=== PATIENT | male | born 1975 | race Two or more races ===

== ENCOUNTER 2018-05-20 19:13 | Emergency (ER) | payer MEDICAID ==
[~2018-05-20] VITALS: Ht 172.7 cm; Wt 83.9 kg
[~2018-05-20 19:13] MED LIST: CHLO25 PO; DOXE10 PO; Desyrel50 MG PO; Fluoxetine HCl20 M1 PO; HYDPAM25 PO; LEVO750 PO; LORA1 PO; OXYACE7.5T PO; PROP10 PO; Prilosec20 MG PO; QUET100 PO; Roxicodone5 MG PO; TRAZ50 PO; VENL75ER PO
== END 2018-05-20 20:15 | disposition home or self-care (01) ==
LOC: ER 19:13
DX: S81.811A Laceration without foreign body, right lower leg, initial encounter (principal); W26.8XXA Contact with other sharp object(s), not elsewhere classified, initial encounter; Z88.0 Allergy status to penicillin; Z87.891 Personal history of nicotine dependence

== ENCOUNTER 2019-02-03 22:41 | Emergency (ER) | payer MEDICAID ==
[~2019-02-03] VITALS: Ht 170.2 cm; Wt 72.6 kg
[~2019-02-03 22:41] MED LIST changes: +Prilosec Otc20 MG PO; +TRAM50 PO
[2019-02-04 00:05] LABS: BASOPHILS ABSOLUTE AUTO 0.05 K/mm3 (0.00-0.23); BASOPHILS PERCENT AUTO 1 % (0-2); EOSINOPHILS ABSOLUTE AUTO 0.05 K/mm3 (0.00-0.68); EOSINOPHILS PERCENT AUTO 1 % (0-6); Hematocrit 36.2 % (37.0-53.0); Hemoglobin 12.8 g/dL (13.5-17.5); IMMATURE GRAN ABSOLUTE AUTO 0.01 K/mm3 (0.00-0.10); IMMATURE GRAN PERCENT AUTO 0 % (0-1); LYMPHOCYTES ABSOLUTE AUTO 3.13 K/mm3 (0.84-5.20); LYMPHOCYTES PERCENT AUTO 46 % (21-46); MONOCYTES ABSOLUTE AUTO 0.52 K/mm3 (0.16-1.47); MONOCYTES PERCENT AUTO 8 % (4-13); Mean Corpuscular HGB 36.3 pg (26.0-34.0); Mean Corpuscular HGB Conc 35.4 g/dL (31.5-36.5); Mean Corpuscular Volume 103 fL (80-100); NEUTROPHILS ABSOLUTE AUTO 3.12 K/mm3 (1.96-9.15); NEUTROPHILS PERCENT AUTO 45 % (41-73); RDW Coefficient Variation 12.3 % (11.7-14.2); RDW Standard Deviation 46.5 fL (35.1-46.3); Red Blood Cell Count 3.53 M/mm3 (4.30-5.90); White Blood Cell Count 6.88 K/mm3 (4.00-11.30)
[2019-02-04 00:06] LABS: Platelet Count 199 K/mm3 (150-400)
[2019-02-04 00:22] LABS: Alanine Aminotransfer (ALT/SGP 59 U/L (12-78); Albumin, Blood 4.1 g/dL (3.4-5.0); Albumin/Globulin Ratio 1.2 (0.8-1.8); Alk Phos 133 U/L (50-136); Anion Gap 12 mmol/L (6-16); Aspartate Aminotrans (AST/SGOT 137 U/L (12-37); Bilirubin, Total 1.6 mg/dL (0.1-1.0); Blood Urea Nitrogen 11 mg/dL (8-24); Bun/Creatinine Ratio 16.3 (12.0-20.0); CO2, Blood 24 mmol/L (21-32); Calcium, Blood 8.5 mg/dL (8.5-10.1); Chloride, Blood 102 mmol/L (98-108); Creatinine, Blood 0.68 mg/dL (0.60-1.20); Globulin, Blood 3.5 g/dL (2.2-4.0); Glomerular Filtration Rate >60 (60-); Glucose, Blood 117 mg/dL (70-99); Potassium, Blood 3.4 mmol/L (3.5-5.5); Sodium, Blood 138 mmol/L (136-145); Total Protein, Blood 7.6 g/dL (6.4-8.2)
[2019-02-04 00:37] LABS: Ethanol (Alcohol), Blood, Med 383 mg/dL
== END 2019-02-04 01:17 | disposition home or self-care (01) ==
LOC: ER 22:41
PROVIDERS: Emergency Medicine
DX: R10.32 Left lower quadrant pain (principal); F10.129 Alcohol abuse with intoxication, unspecified; Y90.8 Blood alcohol level of 240 mg/100 ml or more; Z88.0 Allergy status to penicillin
CPT/HCPCS: 36415; 71046; 74176; 80053; 83690; 85025; 93005; 93010; 99284-25; G0480

== ENCOUNTER 2019-04-05 15:39 | Emergency (ER) | payer MEDICAID ==
[~2019-04-05] VITALS: Ht 172.7 cm; Wt 79.4 kg
[2019-04-05] MEDS ORDERED: Monodox100 MG PO (16:12)
[2019-04-05] MEDS ORDERED: TRAM50 PO (16:31)
[2019-04-05] MEDS ORDERED: CYCL10 PO (16:31)
== END 2019-04-05 16:34 | disposition home or self-care (01) ==
LOC: ER 15:39
DX: L03.113 Cellulitis of right upper limb (principal); M62.830 Muscle spasm of back
CPT/HCPCS: 72100; 99283-25

== ENCOUNTER 2019-04-15 10:20 | Emergency (ER) | payer OTHER ==
[~2019-04-15] VITALS: Ht 170.2 cm; Wt 74.8 kg
[~2019-04-15 10:20] MED LIST changes: +CYCL10 PO; +Monodox100 MG PO
[2019-04-15] MEDS ORDERED: CHLO25 PO (20:29)
[2019-04-16] MEDS ORDERED: Bactrim Ds Tab1 EACH PO ×2 (19:30→19:37)
== END 2019-04-15 11:11 | disposition home or self-care (01) ==
LOC: ER 10:20
DX: L02.413 Cutaneous abscess of right upper limb (principal); Z88.0 Allergy status to penicillin; Z79.899 Other long term (current) drug therapy; J45.909 Unspecified asthma, uncomplicated; Z87.891 Personal history of nicotine dependence
CPT/HCPCS: 10060; 99283-25

== ENCOUNTER 2019-04-15 19:01 | Emergency (ER) | payer OTHER ==
[~2019-04-15] VITALS: Ht 170.2 cm; Wt 74.8 kg
[2019-04-15 19:50] LABS: BASOPHILS ABSOLUTE AUTO 0.03 K/mm3 (0.00-0.23); BASOPHILS PERCENT AUTO 1 % (0-2); EOSINOPHILS ABSOLUTE AUTO 0.03 K/mm3 (0.00-0.68); EOSINOPHILS PERCENT AUTO 1 % (0-6); Hematocrit 35.4 % (37.0-53.0); Hemoglobin 12.3 g/dL (13.5-17.5); IMMATURE GRAN ABSOLUTE AUTO 0.01 K/mm3 (0.00-0.10); IMMATURE GRAN PERCENT AUTO 0 % (0-1); LYMPHOCYTES ABSOLUTE AUTO 1.62 K/mm3 (0.84-5.20); LYMPHOCYTES PERCENT AUTO 27 % (21-46); MONOCYTES ABSOLUTE AUTO 0.44 K/mm3 (0.16-1.47); MONOCYTES PERCENT AUTO 7 % (4-13); Mean Corpuscular HGB 35.4 pg (26.0-34.0); Mean Corpuscular HGB Conc 34.7 g/dL (31.5-36.5); Mean Corpuscular Volume 102 fL (80-100); Mean Platelet Volume 10.7 fL (9.1-12.4); NEUTROPHILS ABSOLUTE AUTO 3.79 K/mm3 (1.96-9.15); NEUTROPHILS PERCENT AUTO 64 % (41-73); Platelet Count 166 K/mm3 (150-400); RDW Coefficient Variation 12.3 % (11.7-14.2); RDW Standard Deviation 45.8 fL (35.1-46.3); Red Blood Cell Count 3.47 M/mm3 (4.30-5.90); White Blood Cell Count 5.92 K/mm3 (4.00-11.30)
[2019-04-15 20:10] LABS: Alanine Aminotransfer (ALT/SGP 42 U/L (12-78); Albumin, Blood 4.2 g/dL (3.4-5.0); Albumin/Globulin Ratio 1.2 (0.8-1.8); Alk Phos 134 U/L (50-136); Anion Gap 10 mmol/L (6-16); Aspartate Aminotrans (AST/SGOT 65 U/L (12-37); Bilirubin, Total 2.3 mg/dL (0.1-1.0); Blood Urea Nitrogen 5 mg/dL (8-24); Bun/Creatinine Ratio 6.4 (12.0-20.0); CO2, Blood 27 mmol/L (21-32); Chloride, Blood 98 mmol/L (98-108); Creatinine, Blood 0.79 mg/dL (0.60-1.20); Globulin, Blood 3.6 g/dL (2.2-4.0); Glomerular Filtration Rate >60 (60-); Glucose, Blood 101 mg/dL (70-99); Potassium, Blood 3.4 mmol/L (3.5-5.5); Sodium, Blood 135 mmol/L (136-145); Total Protein, Blood 7.8 g/dL (6.4-8.2)
[2019-04-15] MEDS ORDERED: CHLO25 PO (20:29)
[2019-04-15 20:30] LABS: Source, Urine Clean Catch
[2019-04-15 20:36] LABS: Bilirubin, Urine Neg (Neg); Blood, Urine Neg (Neg); Glucose Qualitative, Urine Neg (Neg); Ketones, Urine Neg (Neg); Leukocyte Esterase, Urine Neg (Neg); Nitrite, Urine Neg (Neg); Protein, Urine Neg (Neg); Specific Gravity, Urine 1.005 (1.003-1.022); Urobilinogen, Urine NORM (Normal)
[2019-04-15 20:42] LABS: Appearance, Urine Clear (Clear); Color, Urine Pale Yellow (P-Yellow)
[2019-04-15 20:49] LABS: U Amphetamine Screen Not Detected; U Barbituate Screen Not Detected; U Benzodiazapine Screen DETECTED; U Buprenorphine Screen Not Detected; U Cannabinoids Screen Not Detected; U Cocaine Screen Not Detected; U Methadone Screen Not Detected; U Methamphetamine Screen Not Detected; U Opiates Screen Not Detected; U Oxycodone Screen Not Detected; U Phencyclidine Screen Not Detected; U Propoxyphene Screen Not Detected
[2019-04-16] MEDS ORDERED: Bactrim Ds Tab1 EACH PO ×2 (19:30→19:37)
== END 2019-04-15 20:36 | disposition home or self-care (01) ==
LOC: ER 19:01
PROVIDERS: Physician Assistant
DX: F10.231 Alcohol dependence with withdrawal delirium (principal); Z48.817 Encounter for surgical aftercare following surgery on the skin and subcutaneous tissue; Z88.0 Allergy status to penicillin; Z79.899 Other long term (current) drug therapy; Z87.891 Personal history of nicotine dependence
CPT/HCPCS: 36415; 80053; 81003; 82140; 85025; 99283

== ENCOUNTER 2019-04-16 16:13 | Emergency (ER) | payer OTHER ==
[~2019-04-16] VITALS: Ht 170.2 cm; Wt 81.7 kg
[2019-04-16 17:47] LABS: BASOPHILS ABSOLUTE AUTO 0.04 K/mm3 (0.00-0.23); BASOPHILS PERCENT AUTO 1 % (0-2); EOSINOPHILS ABSOLUTE AUTO 0.03 K/mm3 (0.00-0.68); EOSINOPHILS PERCENT AUTO 1 % (0-6); Hematocrit 35.3 % (37.0-53.0); Hemoglobin 12.4 g/dL (13.5-17.5); IMMATURE GRAN ABSOLUTE AUTO 0.02 K/mm3 (0.00-0.10); IMMATURE GRAN PERCENT AUTO 0 % (0-1); LYMPHOCYTES PERCENT AUTO 35 % (21-46); MONOCYTES ABSOLUTE AUTO 0.44 K/mm3 (0.16-1.47); MONOCYTES PERCENT AUTO 7 % (4-13); Mean Corpuscular HGB 35.6 pg (26.0-34.0); Mean Corpuscular HGB Conc 35.1 g/dL (31.5-36.5); Mean Corpuscular Volume 101 fL (80-100); NEUTROPHILS ABSOLUTE AUTO 3.53 K/mm3 (1.96-9.15); NEUTROPHILS PERCENT AUTO 57 % (41-73); Platelet Count 196 K/mm3 (150-400); RDW Coefficient Variation 12.3 % (11.7-14.2); RDW Standard Deviation 45.4 fL (35.1-46.3); Red Blood Cell Count 3.48 M/mm3 (4.30-5.90); White Blood Cell Count 6.26 K/mm3 (4.00-11.30)
[2019-04-16 18:06] LABS: Alanine Aminotransfer (ALT/SGP 39 U/L (12-78); Albumin, Blood 4.1 g/dL (3.4-5.0); Albumin/Globulin Ratio 1.1 (0.8-1.8); Alk Phos 124 U/L (50-136); Anion Gap 10 mmol/L (6-16); Aspartate Aminotrans (AST/SGOT 65 U/L (12-37); Bilirubin, Total 1.5 mg/dL (0.1-1.0); Blood Urea Nitrogen 6 mg/dL (8-24); Bun/Creatinine Ratio 8.5 (12.0-20.0); CO2, Blood 25 mmol/L (21-32); Calcium, Blood 9.5 mg/dL (8.5-10.1); Chloride, Blood 102 mmol/L (98-108); Globulin, Blood 3.6 g/dL (2.2-4.0); Glomerular Filtration Rate >60 (60-); Glucose, Blood 118 mg/dL (70-99); Potassium, Blood 3.4 mmol/L (3.5-5.5); Sodium, Blood 137 mmol/L (136-145); Total Protein, Blood 7.7 g/dL (6.4-8.2)
[2019-04-16] MEDS ORDERED: Bactrim Ds Tab1 EACH PO ×2 (19:30→19:37)
== END 2019-04-16 19:59 | disposition home or self-care (01) ==
LOC: ER 16:13
PROVIDERS: Physician Assistant
DX: L03.113 Cellulitis of right upper limb (principal); Z72.89 Other problems related to lifestyle; Z88.0 Allergy status to penicillin; Z79.899 Other long term (current) drug therapy; Z87.891 Personal history of nicotine dependence
CPT/HCPCS: 36415; 80053; 85025; 96374; 99283-25; G0480; J2060

== ENCOUNTER 2019-05-03 16:50 | Emergency (ER) | payer OTHER ==
[~2019-05-03] VITALS: Ht 172.7 cm; Wt 74.8 kg
[~2019-05-03 16:50] MED LIST changes: +Bactrim Ds Tab1 EACH PO
[2019-05-03] MEDS ORDERED: HYDHCL25 PO (17:23)
[2019-05-03] MEDS ORDERED: Prednisone20 MG PO (17:23)
== END 2019-05-03 17:35 | disposition home or self-care (01) ==
LOC: ER 16:50
DX: L23.7 Allergic contact dermatitis due to plants, except food (principal); Z88.0 Allergy status to penicillin; Z88.8 Allergy status to other drugs, medicaments and biological substances; Z87.891 Personal history of nicotine dependence
CPT/HCPCS: 99282; J7512

== ENCOUNTER 2019-05-14 17:27 | Emergency (ER) | payer OTHER ==
[~2019-05-14] VITALS: Ht 170.2 cm; Wt 77.1 kg
[~2019-05-14 17:27] MED LIST changes: +HYDHCL25 PO; +Prednisone20 MG PO
[2019-05-14] MEDS ORDERED: Prednisone10 MG PO (18:31)
== END 2019-05-14 18:49 | disposition home or self-care (01) ==
LOC: ER 17:27
DX: L23.7 Allergic contact dermatitis due to plants, except food (principal); L55.9 Sunburn, unspecified; J45.909 Unspecified asthma, uncomplicated; Z88.0 Allergy status to penicillin; Z87.891 Personal history of nicotine dependence
CPT/HCPCS: 96372; 99283-25; J3301

== ENCOUNTER 2019-10-15 13:52 | Emergency (ER) | payer OTHER ==
[~2019-10-15 13:52] MED LIST changes: +Prednisone10 MG PO
== END 2019-10-15 14:08 | disposition left against medical advice (07) ==
LOC: ER 13:52
DX: Z53.21 Procedure and treatment not carried out due to patient leaving prior to being seen by health care provider (principal)

== ENCOUNTER 2020-01-30 17:22 | Emergency (ER) | payer OTHER ==
[~2020-01-30] VITALS: Ht 167.6 cm; Wt 74.8 kg
[2020-01-30] MEDS ORDERED: Vibramycin100 MG PO (17:35)
== END 2020-01-30 17:48 | disposition home or self-care (01) ==
LOC: ER 17:22
DX: S51.852A Open bite of left forearm, initial encounter (principal); J45.909 Unspecified asthma, uncomplicated; Z88.0 Allergy status to penicillin; Z88.1 Allergy status to other antibiotic agents; Z79.52 Long term (current) use of systemic steroids; W55.01XA Bitten by cat, initial encounter
CPT/HCPCS: 90471; 90714; 99283-25

== ENCOUNTER 2020-04-17 22:20 | Emergency (ER) | payer OTHER ==
[~2020-04-17 22:20] MED LIST changes: +Vibramycin100 MG PO
== END 2020-04-18 00:15 | disposition left against medical advice (07) ==
LOC: ER 22:20
DX: Z53.21 Procedure and treatment not carried out due to patient leaving prior to being seen by health care provider (principal)

== ENCOUNTER 2020-08-25 19:41 | Emergency (ER) | payer OTHER ==
[~2020-08-25] VITALS: Ht 170.2 cm; Wt 81.7 kg
[~2020-08-25 19:41] MED LIST changes: +Norco 5-325 Ta1 EACH PO
[2020-08-25] MEDS ORDERED: CEPH500 PO (23:40)
[2020-08-25] MEDS ORDERED: IBU800 MG PO (23:40)
== END 2020-08-25 23:46 | disposition home or self-care (01) ==
LOC: ER 19:41
DX: S00.03XA Contusion of scalp, initial encounter (principal); Z87.828 Personal history of other (healed) physical injury and trauma; Z87.891 Personal history of nicotine dependence; X58.XXXA Exposure to other specified factors, initial encounter
CPT/HCPCS: 10060; 70450; 87070; 87075; 87077; 87186; 87205; 99284-25; A9270-GY

== ENCOUNTER 2020-10-02 14:48 | Emergency (ER) | payer OTHER ==
[~2020-10-02] VITALS: Ht 170.2 cm; Wt 79.4 kg
[~2020-10-02 14:48] MED LIST changes: +CEPH500 PO; +IBU800 MG PO
[2020-10-02] MEDS ORDERED: CYCL10 PO (16:20)
[2020-10-02] MEDS ORDERED: IBU800 MG PO (16:20)
== END 2020-10-02 16:32 | disposition home or self-care (01) ==
LOC: ER 14:48
DX: S39.012A Strain of muscle, fascia and tendon of lower back, initial encounter (principal); V47.5XXA Car driver injured in collision with fixed or stationary object in traffic accident, initial encounter; Y92.410 Unspecified street and highway as the place of occurrence of the external cause
CPT/HCPCS: 72100; 99284-25; A9270-GY

== ENCOUNTER 2020-12-05 09:38 | Emergency (ER) | payer OTHER | END 2020-12-05 10:44 | disposition left against medical advice (07) | LOC: ER 09:38 | DX: Z53.21 Procedure and treatment not carried out due to patient leaving prior to being seen by health care provider (principal) ==

== ENCOUNTER 2020-12-15 12:36 | Emergency (ER) | payer OTHER ==
[~2020-12-15] VITALS: Ht 170.2 cm; Wt 79.4 kg
[2020-12-15 13:58] LABS: BASOPHILS ABSOLUTE AUTO 0.08 K/mm3 (0.00-0.23); BASOPHILS PERCENT AUTO 2 % (0-2); EOSINOPHILS ABSOLUTE AUTO 0.02 K/mm3 (0.00-0.68); EOSINOPHILS PERCENT AUTO 0 % (0-6); Hematocrit 41.1 % (37.0-53.0); Hemoglobin 14.1 g/dL (13.5-17.5); IMMATURE GRAN ABSOLUTE AUTO 0.01 K/mm3 (0.00-0.10); IMMATURE GRAN PERCENT AUTO 0 % (0-1); LYMPHOCYTES ABSOLUTE AUTO 2.35 K/mm3 (0.84-5.20); LYMPHOCYTES PERCENT AUTO 50 % (21-46); MONOCYTES ABSOLUTE AUTO 0.36 K/mm3 (0.16-1.47); MONOCYTES PERCENT AUTO 8 % (4-13); Mean Corpuscular HGB 34.2 pg (26.0-34.0); Mean Corpuscular HGB Conc 34.3 g/dL (31.5-36.5); Mean Corpuscular Volume 100 fL (80-100); Mean Platelet Volume 10.4 fL (9.1-12.4); NEUTROPHILS ABSOLUTE AUTO 1.89 K/mm3 (1.96-9.15); NEUTROPHILS PERCENT AUTO 40 % (41-73); Platelet Count 261 K/mm3 (150-400); RDW Coefficient Variation 11.8 % (11.7-14.2); RDW Standard Deviation 43.4 fL (35.1-46.3); Red Blood Cell Count 4.12 M/mm3 (4.30-5.90); White Blood Cell Count 4.71 K/mm3 (4.00-11.30)
[2020-12-15 14:10] LABS: Alanine Aminotransfer (ALT/SGP 86 U/L (12-78); Albumin/Globulin Ratio 1.2 (0.8-1.8); Alk Phos 142 U/L (50-136); Anion Gap 4 mmol/L (6-16); Aspartate Aminotrans (AST/SGOT 182 U/L (12-37); Bilirubin, Total 1.2 mg/dL (0.1-1.0); Blood Urea Nitrogen 14 mg/dL (8-24); Bun/Creatinine Ratio 20.4 (12.0-20.0); CO2, Blood 29 mmol/L (21-32); Calcium, Blood 8.2 mg/dL (8.5-10.1); Chloride, Blood 107 mmol/L (98-108); Creatinine, Blood 0.69 mg/dL (0.60-1.20); Globulin, Blood 3.3 g/dL (2.2-4.0); Glomerular Filtration Rate >60 (60-); Glucose, Blood 113 mg/dL (70-99); Potassium, Blood 3.7 mmol/L (3.5-5.5); Sodium, Blood 140 mmol/L (136-145); Total Protein, Blood 7.3 g/dL (6.4-8.2)
== END 2020-12-15 16:24 | disposition home or self-care (01) ==
LOC: ER 12:36
PROVIDERS: Physician Assistant
DX: R56.9 Unspecified convulsions (principal); F10.10 Alcohol abuse, uncomplicated; Z88.0 Allergy status to penicillin; Z87.891 Personal history of nicotine dependence
CPT/HCPCS: 36415; 70450; 80053; 82140; 85025; 99285-25

== ENCOUNTER 2021-03-03 16:31 | Emergency (ER) | payer OTHER ==
[~2021-03-03] VITALS: Ht 167.6 cm; Wt 76.7 kg
[2021-03-03 17:24] LABS: BASOPHILS ABSOLUTE AUTO 0.03 K/mm3 (0.00-0.23); BASOPHILS PERCENT AUTO 1 % (0-2); EOSINOPHILS ABSOLUTE AUTO 0.04 K/mm3 (0.00-0.68); EOSINOPHILS PERCENT AUTO 1 % (0-6); Hematocrit 38.9 % (37.0-53.0); Hemoglobin 13.8 g/dL (13.5-17.5); IMMATURE GRAN ABSOLUTE AUTO 0.01 K/mm3 (0.00-0.10); IMMATURE GRAN PERCENT AUTO 0 % (0-1); LYMPHOCYTES PERCENT AUTO 37 % (21-46); MONOCYTES ABSOLUTE AUTO 0.55 K/mm3 (0.16-1.47); MONOCYTES PERCENT AUTO 13 % (4-13); Mean Corpuscular HGB 35.1 pg (26.0-34.0); Mean Corpuscular HGB Conc 35.5 g/dL (31.5-36.5); Mean Corpuscular Volume 99 fL (80-100); Mean Platelet Volume 10.6 fL (9.1-12.4); NEUTROPHILS ABSOLUTE AUTO 2.14 K/mm3 (1.96-9.15); NEUTROPHILS PERCENT AUTO 49 % (41-73); Platelet Count 215 K/mm3 (150-400); RDW Coefficient Variation 11.8 % (11.7-14.2); RDW Standard Deviation 43.4 fL (35.1-46.3); Red Blood Cell Count 3.93 M/mm3 (4.30-5.90); White Blood Cell Count 4.37 K/mm3 (4.00-11.30)
[2021-03-03 17:51] LABS: Alanine Aminotransfer (ALT/SGP 82 U/L (12-78); Albumin/Globulin Ratio 1.1 (0.8-1.8); Alk Phos 156 U/L (50-136); Anion Gap 4 mmol/L (6-16); Aspartate Aminotrans (AST/SGOT 164 U/L (12-37); Blood Urea Nitrogen 20 mg/dL (8-24); Bun/Creatinine Ratio 19.4 (12.0-20.0); CO2, Blood 27 mmol/L (21-32); Calcium, Blood 8.8 mg/dL (8.5-10.1); Chloride, Blood 98 mmol/L (98-108); Creatinine, Blood 1.03 mg/dL (0.60-1.20); Globulin, Blood 3.5 g/dL (2.2-4.0); Glomerular Filtration Rate >60 (60-); Glucose, Blood 104 mg/dL (70-99); Potassium, Blood 3.4 mmol/L (3.5-5.5); Sodium, Blood 129 mmol/L (136-145); Total Protein, Blood 7.5 g/dL (6.4-8.2)
[2021-03-03 22:01] LABS: Ethanol (Alcohol), Blood, Med <3 mg/dL
== END 2021-03-03 23:48 | disposition home or self-care (01) ==
LOC: ER 16:31
PROVIDERS: Physician Assistant; Student in an Organized Health Care Education/Training Program
DX: R51.9 Headache, unspecified (principal); G89.29 Other chronic pain; R10.9 Unspecified abdominal pain; K70.9 Alcoholic liver disease, unspecified; Z87.891 Personal history of nicotine dependence
CPT/HCPCS: 36415; 76705; 80053; 83690; 85025; 93005; 93010; 99284-25; A9270; A9270-GY; G0480; J7120

== ENCOUNTER → 2021-08-29 | Outpatient (CLI) | payer OTHER | END | disposition home or self-care (01) | LOC: LAB SHORT 17:38 → LAB 17:38 | DX: L01.00 Impetigo, unspecified (principal) | CPT/HCPCS: 87070; 87077; 87147; 87186; 87205 ==

== ENCOUNTER 2021-12-14 10:43 | Emergency (ER) | payer OTHER ==
[~2021-12-14] VITALS: Ht 170.2 cm; Wt 77.1 kg
[2021-12-14] MEDS ORDERED: ONDA4ODT MM (11:46)
== END 2021-12-14 11:53 | disposition home or self-care (01) ==
LOC: ER 10:43
DX: U07.1 COVID-19 (principal); J45.909 Unspecified asthma, uncomplicated; Z87.891 Personal history of nicotine dependence
CPT/HCPCS: 99283

== ENCOUNTER 2022-03-28 14:42 | Emergency (ER) | payer OTHER ==
[~2022-03-28] VITALS: Ht 170.2 cm; Wt 72.6 kg
[~2022-03-28 14:42] MED LIST changes: +ONDA4ODT MM
== END 2022-03-28 15:58 | disposition home or self-care (01) ==
LOC: ER 14:42
DX: R07.89 Other chest pain (principal); Z79.52 Long term (current) use of systemic steroids; Z79.899 Other long term (current) drug therapy; Z87.891 Personal history of nicotine dependence
CPT/HCPCS: 71045; 96374; 99283-25; J1885

== ENCOUNTER → 2022-04-06 | Outpatient (CLI) | payer OTHER ==
[2022-04-06 12:39] LABS: BASOPHILS ABSOLUTE AUTO 0.06 K/mm3 (0.00-0.23); BASOPHILS PERCENT AUTO 1 % (0-2); EOSINOPHILS ABSOLUTE AUTO 0.07 K/mm3 (0.00-0.68); EOSINOPHILS PERCENT AUTO 1 % (0-6); Hematocrit 34.5 % (37.0-53.0); Hemoglobin 12.1 g/dL (13.5-17.5); IMMATURE GRAN ABSOLUTE AUTO 0.02 K/mm3 (0.00-0.10); IMMATURE GRAN PERCENT AUTO 0 % (0-1); LYMPHOCYTES PERCENT AUTO 24 % (21-46); MONOCYTES ABSOLUTE AUTO 0.88 K/mm3 (0.16-1.47); MONOCYTES PERCENT AUTO 11 % (4-13); Mean Corpuscular HGB 36.7 pg (26.0-34.0); Mean Corpuscular HGB Conc 35.1 g/dL (31.5-36.5); Mean Corpuscular Volume 105 fL (80-100); Mean Platelet Volume 10.7 fL (9.1-12.4); NEUTROPHILS ABSOLUTE AUTO 5.14 K/mm3 (1.96-9.15); NEUTROPHILS PERCENT AUTO 64 % (41-73); Platelet Count 210 K/mm3 (150-400); RDW Coefficient Variation 12.9 % (11.7-14.2); White Blood Cell Count 8.07 K/mm3 (4.00-11.30)
[2022-04-06 13:18] LABS: International Normalized Ratio 1.01; Prothrombin Time Results 10.6 Sec (9.7-11.5)
[2022-04-06 13:25] LABS: Albumin, Blood 3.9 g/dL (3.4-5.0); Bilirubin, Total 2.1 mg/dL (0.1-1.0); Bun/Creatinine Ratio 18.1 (12.0-20.0); Creatinine, Blood 0.72 mg/dL (0.60-1.20); Globulin, Blood 3.8 g/dL (2.2-4.0); Potassium, Blood 3.8 mmol/L (3.5-5.5); Total Protein, Blood 7.7 g/dL (6.4-8.2)
== END | disposition home or self-care (01) ==
LOC: LAB 12:32 → LAB SHORT 12:32
PROVIDERS: Physician Assistant
DX: R10.13 Epigastric pain (principal); R58 Hemorrhage, not elsewhere classified
CPT/HCPCS: 80053; 83690; 85025; 85610

== ENCOUNTER 2023-02-17 15:50 | Emergency (ER) | payer OTHER ==
[~2023-02-17] VITALS: Ht 170.2 cm; Wt 81.7 kg
[~2023-02-17 15:50] MED LIST changes: +FAMOTIDINE 20 MG TAB
[2023-02-17] MEDS ORDERED: CYCL10 PO (17:41)
== END 2023-02-17 17:57 | disposition home or self-care (01) ==
LOC: ER 15:50
DX: M54.50 Low back pain, unspecified (principal); Z87.891 Personal history of nicotine dependence
CPT/HCPCS: 96372; 99283-25; A9270; J1885

== ENCOUNTER 2023-06-07 08:43 | Emergency (ER) | payer OTHER ==
[~2023-06-07] VITALS: Ht 170.2 cm; Wt 79.4 kg
[2023-06-07 10:06] VITALS: BP 136/99
[2023-06-07] MEDS ORDERED: PROM25 PO (10:25)
[2023-06-07] MEDS ORDERED: CHLO25 PO (10:25)
== END 2023-06-07 10:39 | disposition home or self-care (01) ==
LOC: ER 08:43
DX: F10.939 Alcohol use, unspecified with withdrawal, unspecified (principal); J45.909 Unspecified asthma, uncomplicated; Z87.891 Personal history of nicotine dependence
CPT/HCPCS: 99284; A9270

== ENCOUNTER 2025-09-13 22:17 | Emergency (ER) | payer OTHER ==
[~2025-09-13] VITALS: Ht 172.7 cm; Wt 81.7 kg
[~2025-09-13 22:17] MED LIST changes: +Naltrexone HCl50 MG PO; +PROM25 PO
[2025-09-13 22:40] LABS: BASOPHILS ABSOLUTE AUTO 0.02 K/mm3 (0.00-0.23); BASOPHILS PERCENT AUTO 0 % (0-2); EOSINOPHILS ABSOLUTE AUTO 0.00 K/mm3 (0.00-0.68); EOSINOPHILS PERCENT AUTO 0 % (0-6); Hematocrit 43.0 % (37.0-53.0); Hemoglobin 15.1 g/dL (13.5-17.5); IMMATURE GRAN ABSOLUTE AUTO 0.02 K/mm3 (0.00-0.10); IMMATURE GRAN PERCENT AUTO 0 % (0-1); LYMPHOCYTES ABSOLUTE AUTO 0.65 K/mm3 (0.84-5.20); LYMPHOCYTES PERCENT AUTO 6 % (21-46); MONOCYTES ABSOLUTE AUTO 0.58 K/mm3 (0.16-1.47); MONOCYTES PERCENT AUTO 6 % (4-13); Mean Corpuscular HGB Conc 35.1 g/dL (31.5-36.5); Mean Corpuscular Volume 96 fL (80-100); NEUTROPHILS ABSOLUTE AUTO 9.21 K/mm3 (1.96-9.15); NEUTROPHILS PERCENT AUTO 88 % (41-73); NRBC ABSOLUTE 0.00 K/mm3 (0.00-0.02); NRBC Auto 0.0 /100 WBC (0.0-0.2); Platelet Count 232 K/mm3 (150-400); RDW Coefficient Variation 12.1 % (11.7-14.2); RDW Standard Deviation 43.1 fL (35.1-46.3)
[2025-09-13] MEDS ORDERED: Lidocaine 2% Jelly Uro-Jet UR ONE (22:40)
[2025-09-13] MEDS ORDERED: Midazolam HCL 50 MG in NS 40 ML IV PRN (22:55)
[2025-09-13 22:56] LABS: Prothrombin Time Results 11.4 Sec (9.7-11.5)
[2025-09-13] MEDS ORDERED: Midazolam HCL 50 MG in NS 40 ML IV SCH (23:10)
[2025-09-13] MEDS ORDERED: NiCARdipine HCL 50 MG in NS 250 ML IV SCH (23:10)
[2025-09-13 23:19] LABS: Magnesium, Blood 2.1 mg/dL (1.6-2.4); Salicylate <1.7 mg/dL (2.8-20.0)
[2025-09-13 23:21] LABS: Alanine Aminotransfer (ALT/SGP 65 U/L (12-78); Albumin, Blood 4.4 g/dL (3.4-5.0); Albumin/Globulin Ratio 1.2 (0.8-1.8); Anion Gap 13 mmol/L (3-11); Aspartate Aminotrans (AST/SGOT 75 U/L (12-37); Bilirubin, Total 1.6 mg/dL (0.1-1.0); Blood Urea Nitrogen 16 mg/dL (8-24); CO2, Blood 23 mmol/L (21-32); Calcium, Blood 9.2 mg/dL (8.5-10.1); Chloride, Blood 104 mmol/L (98-108); Creatinine, Blood 0.61 mg/dL (0.60-1.20); Globulin, Blood 3.7 g/dL (2.2-4.0); Glucose, Blood 123 mg/dL (70-99); Phosphorus, Blood 2.6 mg/dL (2.5-4.9); Potassium, Blood 4.5 mmol/L (3.5-5.5); Sodium, Blood 135 mmol/L (136-145); Total Protein, Blood 8.1 g/dL (6.4-8.2)
[2025-09-13 23:24] LABS: Acetaminophen, Random <2.0 ug/mL (10.0-30.0)
[2025-09-13] MEDS ORDERED: Etomidate 2MG / ML 10ML Vial IV ONE (23:40)
[2025-09-13] MEDS ORDERED: Tranexamic Acid 100 ML IV ONE (23:55)
[2025-09-13 23:56] LABS: Source, Urine Clean Catch
[2025-09-14 00:01] LABS: Bilirubin, Urine Neg (Neg); Glucose Qualitative, Urine Neg (Neg); Ketones, Urine 4+ (Neg); Leukocyte Esterase, Urine 1+ (Neg); Protein, Urine 3+ (Neg); Specific Gravity, Urine 1.015 (1.003-1.022); Urobilinogen, Urine 1+ (Normal)
[2025-09-14 00:12] LABS: U Amphetamine Screen Not Detected; U Barbiturate Screen Not Detected; U Benzodiazapine Screen Not Detected; U Buprenorphine Screen Not Detected; U Cannabinoids Screen DETECTED; U Cocaine Screen Not Detected; U Methadone Screen Not Detected; U Methamphetamine Screen Not Detected; U Opiates Screen Not Detected; U Oxycodone Screen Not Detected; U Phencyclidine Screen Not Detected
[2025-09-14 00:13] LABS: Color, Urine Yellow (P-Yellow); Red Blood Cells, Urine 0-2 /hpf (0-2); White Blood Cells, Urine 0-2 /hpf (0-5)
[2025-09-14 00:50] VITALS: BP 148/99
[2025-09-14] MEDS ORDERED: Midazolam HCl 1MG / ML 2ML Vial IV ONE (15:20)
[2025-09-14] MEDS ORDERED: Etomidate 2MG / ML 10ML Vial IV ONE (15:20)
[2025-09-14] MEDS ORDERED: LORazepam 2 MG/ML 1ML Injection IV ONE (15:20)
[2025-09-14] MEDS ORDERED: Rocuronium Bromide 10 MG/ML 5ML Injection IV ONE (15:20)
== END 2025-09-14 01:29 | disposition short-term general hospital (02) ==
LOC: ER 22:17
PROVIDERS: Emergency Medicine
DX: I61.0 Nontraumatic intracerebral hemorrhage in hemisphere, subcortical (principal); R47.01 Aphasia; G81.91 Hemiplegia, unspecified affecting right dominant side; Z87.891 Personal history of nicotine dependence; Z87.820 Personal history of traumatic brain injury; Z79.899 Other long term (current) drug therapy; Z59.89 Other problems related to housing and economic circumstances
CPT/HCPCS: 51702; 70450; 71045; 72125; 80053; 81001; 82550; 82947; 83605; 83735; 84100; 85025; 85610; 85730; 93005; 93010; 96374-59; 99285-25; G0480; J1953; J2060; J2250; J2704; J3010; J7050